=== PATIENT | female | born 1960 | race African-American/Black ===

== ENCOUNTER 2017-11-02 22:12 | Inpatient (IN) | payer MEDICAID, OTHER ==
[~2017-11-02] VITALS: Ht 172.7 cm; Wt 58.7 kg
[2017-11-02 22:47] LABS: BASOPHILS % (AUTO) 0.9 % (0.0-2.0); EOSINOPHILS % (AUTO) 3.3 % (1.0-6.0); HEMATOCRIT 33.8 % (36-46); HEMOGLOBIN 11.4 g/dL (12.0-16.0); LYMPHOCYTES # (AUTO) 1.6 K/uL (1.0-4.8); LYMPHOCYTES % (AUTO) 44.1 % (22.0-44.0); MEAN CORPUSCULAR HEMOGLOBIN 35.3 pg (26.0-34.0); MEAN CORPUSCULAR HGB CONC 33.7 G/dL (31.0-37.0); MEAN CORPUSCULAR VOLUME 105 fL (80-100); MONOCYTES # (AUTO) 0.5 K/uL (0.1-1.0); MONOCYTES % (AUTO) 13.6 % (2.0-9.0); NEUTROPHILS # (AUTO) 1.4 K/uL (1.8-7.7); NEUTROPHILS % (AUTO) 38.1 % (40.0-70.0); PLATELET COUNT (AUTO) 265 K/uL (150-450); RED BLOOD CELL COUNT(AUTO) 3.23 MIL/uL (4.00-5.20); RED CELL DISTRIBUTION WIDTH 18.7 % (11.5-14.5)
[2017-11-02 22:57] LABS: ANION GAP 9 mmol/L (8-16); CALCIUM, TOTAL 8.4 mg/dL (8.8-10.5); CARBON DIOXIDE 27 mmol/L (22-29); CHLORIDE 102 mmol/L (98-107); GLOMERULAR FILTR. RATE CALC > 60 mL/min (>60); GLUCOSE,RANDOM 111 mg/dL (70-110); POTASSIUM 3.8 mmol/L (3.5-5.1); SODIUM SERUM 138 mmol/L (136-145); UREA NITROGEN, BLOOD 5 mg/dL (7-18)
[2017-11-02 23:03] LABS: ALANINE AMINOTRANSFERASE 18 U/L (12-78); ALBUMIN 3.7 g/dL (3.4-5.0); ALKALINE PHOSPHATASE 98 U/L (46-116); ASPARTATE AMINOTRANSFERASE 43 U/L (15-37); BILIRUBIN,TOTAL 0.2 mg/dL (0.1-1.0); TOTAL PROTEIN, SERUM 7.6 g/dL (6.4-8.2)
[2017-11-03] VITALS (12 sets, daily range): BP systolic 98–128; BP diastolic 62–82
[2017-11-03] MEDS ORDERED: LORazepam 2 MG TABLET PO PRN (01:45)
[2017-11-03] MEDS ORDERED: HALOPERIDOL 5 MG TABLET PO PRN (01:45)
[2017-11-03] MEDS ORDERED: NICOTINE 14 MG/24 HOUR PATCH TD SCH (09:00)
[2017-11-03] MEDS ORDERED: CYANOCOBALAMIN 1,000 MCG/ML VIAL IM ONE (09:15)
[2017-11-03] MEDS: FOLIC ACID 1 MG TABLET PO SCH (09:24)
[2017-11-03] MEDS: MULTIVITAMINS WITH MINERALS, THERAPEUTIC TABLET PO SCH (09:24)
[2017-11-03] MEDS: THIAMINE HCL 100 MG TABLET PO SCH ×2 (09:24→16:28)
[2017-11-03] MEDS: ESCITALOPRAM OXALATE 10 MG TABLET PO SCH (09:25)
[2017-11-03] MEDS: LORazepam 2 MG TABLET PO PRN ×2 (09:40→16:28)
[2017-11-04 01:00] VITALS: BP 106/65
[2017-11-04 05:30] VITALS: BP 119/76
[2017-11-04] MEDS ORDERED: LORazepam 2 MG TABLET PO PRN (07:00)
[2017-11-04] MEDS: FOLIC ACID 1 MG TABLET PO SCH (08:05)
[2017-11-04] MEDS: MULTIVITAMINS WITH MINERALS, THERAPEUTIC TABLET PO SCH (08:05)
[2017-11-04] MEDS: NICOTINE 21 MG/24 HOUR PATCH TD SCH (08:05)
[2017-11-04] MEDS: THIAMINE HCL 100 MG TABLET PO SCH ×2 (08:05→16:10)
[2017-11-04] MEDS: LORazepam 2 MG TABLET PO SCH ×4 (08:05→20:21)
[2017-11-04] MEDS: ESCITALOPRAM OXALATE 10 MG TABLET PO SCH (08:05)
[2017-11-04 08:34] VITALS: BP 110/73
[2017-11-04 08:40] LABS: CHOL/HDL RATIO 3.2 (3.9-5.7)
[2017-11-04 09:00] VITALS: BP 110/73
[2017-11-04 16:08] VITALS: BP 117/84
[2017-11-05 06:43] VITALS: BP 119/86
[2017-11-05] MEDS: MULTIVITAMINS WITH IRON TABLET PO SCH (08:21)
[2017-11-05] MEDS: LORazepam 2 MG TABLET PO SCH ×4 (08:21→20:58)
[2017-11-05] MEDS: FOLIC ACID 1 MG TABLET PO SCH (08:21)
[2017-11-05] MEDS: THIAMINE HCL 100 MG TABLET PO SCH ×2 (08:21→16:56)
[2017-11-05] MEDS: NICOTINE 21 MG/24 HOUR PATCH TD SCH (08:22)
[2017-11-05] MEDS: ESCITALOPRAM OXALATE 10 MG TABLET PO SCH (08:22)
[2017-11-05 08:34] VITALS: BP 108/68
[2017-11-05 09:46] VITALS: BP 108/68
[2017-11-05 16:00] VITALS: BP 130/79
[2017-11-05 16:18] VITALS: BP 145/99
[2017-11-06 02:19] VITALS: BP 110/78
[2017-11-06 05:54] VITALS: BP 105/68
[2017-11-06] MEDS ORDERED: LORazepam 1 MG TABLET PO PRN (07:00)
[2017-11-06] MEDS: ESCITALOPRAM OXALATE 10 MG TABLET PO SCH (08:02)
[2017-11-06] MEDS: MULTIVITAMINS WITH IRON TABLET PO SCH (08:02)
[2017-11-06] MEDS: NICOTINE 21 MG/24 HOUR PATCH TD SCH (08:02)
[2017-11-06] MEDS: FOLIC ACID 1 MG TABLET PO SCH (08:02)
[2017-11-06] MEDS: LORazepam 1 MG TABLET PO SCH ×4 (08:02→20:13)
[2017-11-06] MEDS: THIAMINE HCL 100 MG TABLET PO SCH ×2 (08:23→16:05)
[2017-11-06 08:33] VITALS: BP 120/73
[2017-11-06 10:52] VITALS: BP 120/73
[2017-11-06 16:04] VITALS: BP 137/88
[2017-11-06] MEDS: HYDROCORTISONE 1% 30 GM CREAM TP SCH (21:26)
[2017-11-07 01:00] VITALS: BP 135/84
[2017-11-07 08:00] VITALS: BP 117/76
[2017-11-07 08:22] VITALS: BP 117/76
[2017-11-07] MEDS: MULTIVITAMINS WITH IRON TABLET PO SCH (09:08)
[2017-11-07] MEDS: LORazepam 1 MG TABLET PO PRN ×3 (09:08→20:49)
[2017-11-07] MEDS: CHOLECALCIFEROL (VIT D3) 1,000 UNITS TABLET PO SCH (09:09)
[2017-11-07] MEDS: FOLIC ACID 1 MG TABLET PO SCH (09:09)
[2017-11-07] MEDS: THIAMINE HCL 100 MG TABLET PO SCH ×2 (09:09→16:28)
[2017-11-07] MEDS: ESCITALOPRAM OXALATE 10 MG TABLET PO SCH (09:09)
[2017-11-07] MEDS: NICOTINE 21 MG/24 HOUR PATCH TD SCH (09:09)
[2017-11-07] MEDS: HYDROCORTISONE 1% 30 GM CREAM TP SCH ×2 (09:09→16:29)
[2017-11-07 16:59] VITALS: BP 126/85
[2017-11-07 17:00] VITALS: BP 126/85
[2017-11-07] MEDS: ZOLPIDEM TARTRATE 10 MG TABLET PO PRN (20:49)
[2017-11-07] MEDS ORDERED: ESCI10TA PO (21:20)
[2017-11-08 07:08] VITALS: BP 110/72
[2017-11-08 08:12] VITALS: BP 112/74
[2017-11-08] MEDS: NICOTINE 21 MG/24 HOUR PATCH TD SCH (08:18)
[2017-11-08] MEDS: ESCITALOPRAM OXALATE 10 MG TABLET PO SCH (08:19)
[2017-11-08] MEDS: HYDROCORTISONE 1% 30 GM CREAM TP SCH ×2 (08:20→16:30)
[2017-11-08] MEDS: MULTIVITAMINS WITH IRON TABLET PO SCH (08:20)
[2017-11-08] MEDS: FOLIC ACID 1 MG TABLET PO SCH (08:20)
[2017-11-08] MEDS: CHOLECALCIFEROL (VIT D3) 1,000 UNITS TABLET PO SCH (08:20)
[2017-11-08] MEDS: THIAMINE HCL 100 MG TABLET PO SCH ×2 (08:20→16:29)
[2017-11-08] MEDS ORDERED: CHOLECALCIFEROL (VIT D3) 1,000 UNITS TABLET PO SCH (09:00)
[2017-11-08] MEDS: FLUoxetine HCL 20 MG CAPSULE PO SCH (09:17)
[2017-11-08 12:09] VITALS: BP 135/82
[2017-11-08 16:00] VITALS: BP 133/87
[2017-11-08 16:05] VITALS: BP 133/87
[2017-11-08] MEDS: ZOLPIDEM TARTRATE 10 MG TABLET PO PRN (21:45)
[2017-11-09 07:14] VITALS: BP 100/68
[2017-11-09] MEDS: CHOLECALCIFEROL (VIT D3) 1,000 UNITS TABLET PO SCH (08:33)
[2017-11-09] MEDS: MULTIVITAMINS WITH IRON TABLET PO SCH (08:33)
[2017-11-09] MEDS: ESCITALOPRAM OXALATE 10 MG TABLET PO SCH (08:33)
[2017-11-09] MEDS: FOLIC ACID 1 MG TABLET PO SCH (08:33)
[2017-11-09] MEDS: THIAMINE HCL 100 MG TABLET PO SCH ×2 (08:33→16:52)
[2017-11-09] MEDS: FLUoxetine HCL 20 MG CAPSULE PO SCH (08:33)
[2017-11-09] MEDS: NICOTINE 21 MG/24 HOUR PATCH TD SCH (08:33)
[2017-11-09] MEDS: DENTURE ADHESIVE 68 GM CREAM DT PRN (08:36)
[2017-11-09] MEDS: HYDROCORTISONE 1% 30 GM CREAM TP SCH ×2 (08:37→16:52)
[2017-11-09 13:57] VITALS: BP 100/62
[2017-11-09 16:06] VITALS: BP 126/84
[2017-11-09] MEDS ORDERED: MAGNESIUM HYDROXIDE SUSPENSION 30 ML UDCUP PO PRN (19:45)
[2017-11-09] MEDS ORDERED: MAG HYDROX/AL HYDROX/SIMETH ES 30 ML SUSPENSION UDCUP PO PRN (19:45)
[2017-11-09] MEDS ORDERED: ALBUTEROL SULFATE HFA 90 MCG/PUFF 8 GM INHALER IH PRN (19:45)
[2017-11-09] MEDS ORDERED: IBUPROFEN 600 MG TABLET PO PRN (19:45)
[2017-11-09] MEDS ORDERED: ACETAMINOPHEN 325 MG TABLET PO PRN (19:45)
[2017-11-09] MEDS ORDERED: ONDANSETRON HCL 4 MG TABLET PO PRN (19:45)
[2017-11-09] MEDS ORDERED: PETROLATUM,WHITE 71 GM JELLY TP PRN (19:45)
[2017-11-09] MEDS ORDERED: BACITRACIN 28.4 GM OINTMENT TP PRN (19:45)
[2017-11-09] MEDS ORDERED: LOPERAMIDE HCL 2 MG CAPSULE PO PRN (19:45)
[2017-11-09] MEDS ORDERED: BENZOCAINE/MENTHOL LOZENGE MM PRN (19:45)
[2017-11-09] MEDS ORDERED: CloNIDine HCL 0.1 MG TABLET PO PRN (19:45)
[2017-11-09] MEDS: ZOLPIDEM TARTRATE 10 MG TABLET PO PRN (20:34)
[2017-11-10 07:11] VITALS: BP 110/68
[2017-11-10 08:11] VITALS: BP 117/69
[2017-11-10] MEDS: FOLIC ACID 1 MG TABLET PO SCH (08:14)
[2017-11-10] MEDS: ESCITALOPRAM OXALATE 10 MG TABLET PO SCH (08:14)
[2017-11-10] MEDS: MULTIVITAMINS WITH IRON TABLET PO SCH (08:14)
[2017-11-10] MEDS: CHOLECALCIFEROL (VIT D3) 1,000 UNITS TABLET PO SCH (08:14)
[2017-11-10] MEDS: FLUoxetine HCL 20 MG CAPSULE PO SCH (08:14)
[2017-11-10] MEDS: DOCUSATE SODIUM 100 MG CAPSULE PO SCH (08:14)
[2017-11-10] MEDS: OMEPRAZOLE 20 MG CAPSULE PO SCH (08:14)
[2017-11-10] MEDS: THIAMINE HCL 100 MG TABLET PO SCH ×2 (08:14→16:43)
[2017-11-10] MEDS: HYDROCORTISONE 1% 30 GM CREAM TP SCH ×2 (08:15→16:45)
[2017-11-10] MEDS: NICOTINE 21 MG/24 HOUR PATCH TD SCH (08:15)
[2017-11-10 16:00] VITALS: BP 132/92
[2017-11-10] MEDS: ZOLPIDEM TARTRATE 10 MG TABLET PO PRN (22:22)
[2017-11-11 07:13] VITALS: BP 130/90
[2017-11-11 08:21] VITALS: BP_SYST 109
[2017-11-11] MEDS: NICOTINE 21 MG/24 HOUR PATCH TD SCH (09:15)
[2017-11-11] MEDS: MULTIVITAMINS WITH IRON TABLET PO SCH (09:15)
[2017-11-11] MEDS: FLUoxetine HCL 20 MG CAPSULE PO SCH (09:15)
[2017-11-11] MEDS: FOLIC ACID 1 MG TABLET PO SCH (09:15)
[2017-11-11] MEDS: CHOLECALCIFEROL (VIT D3) 1,000 UNITS TABLET PO SCH (09:15)
[2017-11-11] MEDS: DOCUSATE SODIUM 100 MG CAPSULE PO SCH (09:15)
[2017-11-11] MEDS: ESCITALOPRAM OXALATE 10 MG TABLET PO SCH (09:16)
[2017-11-11] MEDS: OMEPRAZOLE 20 MG CAPSULE PO SCH (09:41)
[2017-11-11] MEDS: THIAMINE HCL 100 MG TABLET PO SCH ×2 (09:42→16:43)
[2017-11-11] MEDS: HYDROCORTISONE 1% 30 GM CREAM TP SCH ×2 (09:42→17:22)
[2017-11-11] MEDS: LORazepam 1 MG TABLET PO PRN ×2 (10:03→16:43)
[2017-11-11 16:34] VITALS: BP 117/76
[2017-11-11] MEDS: MIRTAZAPINE 15 MG TABLET PO SCH (20:12)
[2017-11-12 06:27] VITALS: BP 121/74
[2017-11-12] MEDS: NICOTINE 21 MG/24 HOUR PATCH TD SCH (08:23)
[2017-11-12] MEDS: FOLIC ACID 1 MG TABLET PO SCH (08:23)
[2017-11-12] MEDS: OMEPRAZOLE 20 MG CAPSULE PO SCH (08:23)
[2017-11-12] MEDS: ESCITALOPRAM OXALATE 10 MG TABLET PO SCH (08:23)
[2017-11-12] MEDS: CHOLECALCIFEROL (VIT D3) 1,000 UNITS TABLET PO SCH (08:23)
[2017-11-12] MEDS: MULTIVITAMINS WITH IRON TABLET PO SCH (08:23)
[2017-11-12] MEDS: THIAMINE HCL 100 MG TABLET PO SCH ×2 (08:23→16:37)
[2017-11-12] MEDS: FLUoxetine HCL 20 MG CAPSULE PO SCH (08:24)
[2017-11-12] MEDS: DOCUSATE SODIUM 100 MG CAPSULE PO SCH (08:24)
[2017-11-12 08:25] VITALS: BP 123/85
[2017-11-12] MEDS: LORazepam 1 MG TABLET PO PRN ×2 (09:51→16:38)
[2017-11-12 16:18] VITALS: BP 115/71
[2017-11-12] MEDS: MIRTAZAPINE 15 MG TABLET PO SCH (20:54)
[2017-11-13 06:48] VITALS: BP 136/88
[2017-11-13] MEDS: NICOTINE 21 MG/24 HOUR PATCH TD SCH (08:27)
[2017-11-13] MEDS: MULTIVITAMINS WITH IRON TABLET PO SCH (08:27)
[2017-11-13] MEDS: FLUoxetine HCL 20 MG CAPSULE PO SCH (08:27)
[2017-11-13] MEDS: CHOLECALCIFEROL (VIT D3) 1,000 UNITS TABLET PO SCH (08:27)
[2017-11-13] MEDS: OMEPRAZOLE 20 MG CAPSULE PO SCH (08:27)
[2017-11-13] MEDS: ESCITALOPRAM OXALATE 10 MG TABLET PO SCH (08:28)
[2017-11-13] MEDS: DOCUSATE SODIUM 100 MG CAPSULE PO SCH (08:28)
[2017-11-13 08:30] VITALS: BP 118/71
[2017-11-13] MEDS: LORazepam 1 MG TABLET PO PRN ×2 (09:26→16:05)
[2017-11-13 16:05] VITALS: BP 128/78
[2017-11-13] MEDS: MIRTAZAPINE 15 MG TABLET PO SCH (20:22)
[2017-11-14 06:02] VITALS: BP 130/78
[2017-11-14 08:00] VITALS: BP 91/60
[2017-11-14] MEDS: ESCITALOPRAM OXALATE 10 MG TABLET PO SCH (08:28)
[2017-11-14] MEDS: LORazepam 1 MG TABLET PO PRN ×2 (08:28→12:42)
[2017-11-14] MEDS: NICOTINE 21 MG/24 HOUR PATCH TD SCH (08:28)
[2017-11-14 08:29] LABS: BASOPHILS % (AUTO) 0.9 % (0.0-2.0); EOSINOPHILS % (AUTO) 5.5 % (1.0-6.0); HEMOGLOBIN 11.8 g/dL (12.0-16.0); LYMPHOCYTES # (AUTO) 1.5 K/uL (1.0-4.8); LYMPHOCYTES % (AUTO) 33.6 % (22.0-44.0); MEAN CORPUSCULAR HGB CONC 32.7 G/dL (31.0-37.0); MEAN CORPUSCULAR VOLUME 104 fL (80-100); MONOCYTES # (AUTO) 0.6 K/uL (0.1-1.0); MONOCYTES % (AUTO) 12.1 % (2.0-9.0); NEUTROPHILS # (AUTO) 2.2 K/uL (1.8-7.7); NEUTROPHILS % (AUTO) 47.9 % (40.0-70.0); PLATELET COUNT (AUTO) 334 K/uL (150-450); RED BLOOD CELL COUNT(AUTO) 3.47 MIL/uL (4.00-5.20); RED CELL DISTRIBUTION WIDTH 17.4 % (11.5-14.5)
[2017-11-14] MEDS: CHOLECALCIFEROL (VIT D3) 1,000 UNITS TABLET PO SCH (08:29)
[2017-11-14] MEDS: FLUoxetine HCL 20 MG CAPSULE PO SCH (08:29)
[2017-11-14] MEDS: OMEPRAZOLE 20 MG CAPSULE PO SCH (08:29)
[2017-11-14] MEDS: DOCUSATE SODIUM 100 MG CAPSULE PO SCH (08:29)
[2017-11-14] MEDS: MULTIVITAMINS WITH IRON TABLET PO SCH (08:29)
[2017-11-14] MEDS: DENTURE ADHESIVE 68 GM CREAM DT PRN (08:31)
[2017-11-14 08:39] LABS: ALANINE AMINOTRANSFERASE 13 U/L (12-78); ALBUMIN 3.4 g/dL (3.4-5.0); ALKALINE PHOSPHATASE 73 U/L (46-116); ANION GAP 6 mmol/L (8-16); ASPARTATE AMINOTRANSFERASE 19 U/L (15-37); BILIRUBIN,TOTAL 0.1 mg/dL (0.1-1.0); CALCIUM, TOTAL 8.7 mg/dL (8.8-10.5); CARBON DIOXIDE 31 mmol/L (22-29); CHLORIDE 104 mmol/L (98-107); CREATININE 0.62 mg/dL (0.60-1.30); GLOMERULAR FILTR. RATE CALC > 60 mL/min (>60); GLUCOSE,RANDOM 141 mg/dL (70-110); POTASSIUM 3.9 mmol/L (3.5-5.1); SODIUM SERUM 141 mmol/L (136-145); TOTAL PROTEIN, SERUM 7.4 g/dL (6.4-8.2); UREA NITROGEN, BLOOD 12 mg/dL (7-18)
[2017-11-14 16:44] VITALS: BP 127/82
[2017-11-14] MEDS: MIRTAZAPINE 15 MG TABLET PO SCH (21:14)
[2017-11-15 06:36] VITALS: BP 112/69
[2017-11-15] MEDS: ESCITALOPRAM OXALATE 10 MG TABLET PO SCH (08:11)
[2017-11-15] MEDS: DOCUSATE SODIUM 100 MG CAPSULE PO SCH (08:11)
[2017-11-15] MEDS: FLUoxetine HCL 20 MG CAPSULE PO SCH (08:11)
[2017-11-15] MEDS: MULTIVITAMINS WITH IRON TABLET PO SCH (08:11)
[2017-11-15] MEDS: OMEPRAZOLE 20 MG CAPSULE PO SCH (08:11)
[2017-11-15] MEDS: LORazepam 1 MG TABLET PO PRN ×2 (08:12→16:06)
[2017-11-15] MEDS: NICOTINE 21 MG/24 HOUR PATCH TD SCH (08:13)
[2017-11-15] MEDS: CHOLECALCIFEROL (VIT D3) 1,000 UNITS TABLET PO SCH (08:23)
[2017-11-15 09:39] VITALS: BP 109/73
[2017-11-15 17:22] VITALS: BP 138/93
[2017-11-15] MEDS: MIRTAZAPINE 15 MG TABLET PO SCH (20:10)
[2017-11-16 02:30] VITALS: BP 125/75
[2017-11-16] MEDS ORDERED: DOCU-119 PO (07:21)
[2017-11-16] MEDS ORDERED: OMEP20CA10 PO (07:24)
[2017-11-16] MEDS ORDERED: MVITFE PO (07:30)
[2017-11-16] MEDS ORDERED: VITAD1000 PO (07:31)
[2017-11-16] MEDS ORDERED: MIRT15 PO (07:32)
[2017-11-16] MEDS: MULTIVITAMINS WITH IRON TABLET PO SCH (08:08)
[2017-11-16] MEDS: ESCITALOPRAM OXALATE 10 MG TABLET PO SCH (08:08)
[2017-11-16] MEDS: FLUoxetine HCL 20 MG CAPSULE PO SCH (08:08)
[2017-11-16] MEDS: DOCUSATE SODIUM 100 MG CAPSULE PO SCH (08:08)
[2017-11-16] MEDS: CHOLECALCIFEROL (VIT D3) 1,000 UNITS TABLET PO SCH (08:08)
[2017-11-16] MEDS: NICOTINE 21 MG/24 HOUR PATCH TD SCH (08:08)
[2017-11-16] MEDS: OMEPRAZOLE 20 MG CAPSULE PO SCH (08:08)
[2017-11-16 08:16] VITALS: BP 125/86
== END 2017-11-16 14:15 | disposition home or self-care (01) | DRG 751 ==
LOC: EMS 22:14 → B3A 11-03 01:02
PROVIDERS: ADMIT Psychiatry & Neurology Child & Adolescent Psychiatry; ATTEND Psychiatry & Neurology Child & Adolescent Psychiatry
DX: F33.3 Major depressive disorder, recurrent, severe with psychotic symptoms (principal); E83.51 Hypocalcemia; R45.851 Suicidal ideations; D53.9 Nutritional anemia, unspecified; Y90.1 Blood alcohol level of 20-39 mg/100 ml; F10.229 Alcohol dependence with intoxication, unspecified; F17.210 Nicotine dependence, cigarettes, uncomplicated; F41.9 Anxiety disorder, unspecified; G47.00 Insomnia, unspecified; K59.00 Constipation, unspecified; Z59.0 Homelessness; Z82.3 Family history of stroke; Z71.6 Tobacco abuse counseling; Z71.41 Alcohol abuse counseling and surveillance of alcoholic
CPT/HCPCS: 80074; 82306; 83036; 99285; G0480; J3420